=== PATIENT | male | born 1970 | race American Indian/Alaskan Native ===

== ENCOUNTER 2021-02-01 12:00 | Emergency (ER) | payer BC ==
[2021-02-01 13:16] LABS: Basophils # (Auto) 0.1 K/mm3 (0.0-0.1); Basophils % (Auto) 0.6 % (0.0-1.8); Eosinophils # (Auto) 0.1 K/mm3 (0.0-0.4); Eosinophils % (Auto) 0.8 % (0.0-4.3); Hematocrit 45.3 % (35.5-45.6); Hemoglobin 14.4 gm/dl (11.8-15.2); Lymphocytes # (Auto) 1.3 K/mm3 (1.2-5.4); Lymphocytes % (Auto) 13.8 % (13.4-35.0); Mean Corpuscular HGB Conc 32 % (32-34); Mean Corpuscular Volume 85 fl (84-94); Monocytes # (Auto) 0.6 K/mm3 (0.0-0.8); Monocytes % (Auto) 6.1 % (0.0-7.3); Platelet Count 309 K/mm3 (140-440); Red Blood Count 5.33 M/mm3 (3.65-5.03); Red Cell Distribution Width 15.1 % (13.2-15.2)
--- NOTE | 2021-02-01 13:36 | Emergency Department Report ---
ED General Adult HPI - General Chief complaint: High BP Stated complaint: B/P CHECK Time Seen by Provider: 02/01/21 12:11 Source: patient Mode of arrival: Ambulatory Limitations: No Limitations - History of Present Illness Initial comments: This is a 51-year-old male nontoxic, well nourished in appearance, no acute signs of distress presents to the ED with c/o of elevated blood pressure. 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 Patient stated currently is currently taking blood pressure medication consistently. Patient otherwise denies any symptoms or complaints. Patient denies any chest pain, shortness of breath, headache, stiff neck, numbness, tingling, headache, back pain, neck pain or urinary changes. Patient stated allergies to doxycycline and tetracyclines. -: This morning Severity scale (0 -10): 0 Improves with: none Worsens with: none Associated Symptoms: denies other symptoms. denies: confusion, chest pain, cough, diaphoresis, fever/chills, headaches, loss of appetite, malaise, nausea/vomiting, rash, seizure, shortness of breath, syncope, weakness Treatments Prior to Arrival: none - Related Data Previous Rx's Medication Instructions Recorded Last Taken Type Ondansetron [Zofran TAB] 4 mg PO Q8HR PRN #14 tablet 05/06/16 Unknown Rx traMADoL [Ultram 50 MG tab] 50 mg PO Q6HR PRN #12 tablet 05/06/16 Unknown Rx Allergies Allergy/AdvReac Type Severity Reaction Status Date / Time doxycycline Allergy Rash Verified 05/06/16 15:30 Tetracyclines Allergy Swelling Verified 05/06/16 15:30 ED Review of Systems ROS: Stated complaint: B/P CHECK Other details as noted in HPI Comment: All other systems reviewed and negative Constitutional: denies: chills, fever Eyes: denies: eye pain, eye discharge, vision change ENT: denies: ear pain, throat pain Respiratory: denies: cough, shortness of breath, wheezing Cardiovascular: denies: chest pain, palpitations Endocrine: no symptoms reported Gastrointestinal: denies: abdominal pain, nausea, diarrhea Genitourinary: denies: urgency, dysuria Musculoskeletal: denies: back pain, joint swelling, arthralgia Skin: denies: rash, lesions Neurological: denies: headache, weakness, paresthesias Psychiatric: denies: anxiety, depression Hematological/Lymphatic: denies: easy bleeding, easy bruising ED Past Medical Hx - Past Medical History Previous Medical History?: Yes Hx Hypertension: Yes (no meds) Hx Renal Disease: Yes (Kidney insufficiency) - Surgical History Past Surgical History?: Yes Additional Surgical History: Right hip surgery and 2 knee surgeries - Social History Smoking Status: Never Smoker Substance Use Type: Alcohol - Medications Home Medications: Home Medications Medication Instructions Recorded Confirmed Last Taken Type Ondansetron [Zofran TAB] 4 mg PO Q8HR PRN #14 tablet 05/06/16 Unknown Rx traMADoL [Ultram 50 MG tab] 50 mg PO Q6HR PRN #12 tablet 05/06/16 Unknown Rx ED Physical Exam - General Limitations: No Limitations General appearance: alert, in no apparent distress - Head Head exam: Present: atraumatic, normocephalic - Eye Eye exam: Present: normal appearance, PERRL, EOMI - ENT ENT exam: Present: normal exam, normal orophraynx - Neck Neck exam: Present: normal inspection, full ROM. Absent: lymphadenopathy - Respiratory Respiratory exam: Present: normal lung sounds bilaterally. Absent: respiratory distress, wheezes, rales, rhonchi, stridor, chest wall tenderness, accessory muscle use, decreased breath sounds, prolonged expiratory - Cardiovascular Cardiovascular Exam: Present: regular rate, normal rhythm, normal heart sounds. Absent: irregular rhythm, systolic murmur, diastolic murmur, rubs, gallop - GI/Abdominal GI/Abdominal exam: Present: soft, normal bowel sounds. Absent: distended, tenderness, guarding, rebound, rigid, diminished bowel sounds - Extremities Exam Extremities exam: Present: normal inspection, full ROM, normal capillary refill. Absent: tenderness - Back Exam Back exam: Present: normal inspection, full ROM. Absent: tenderness, CVA tenderness (R), CVA tenderness (L), muscle spasm, paraspinal tenderness, vertebral tenderness, rash noted - Neurological Exam Neurological exam: Present: alert, oriented X3, normal gait - Psychiatric Psychiatric exam: Present: normal affect, normal mood - Skin Skin exam: Present: warm, dry, intact, normal color. Absent: rash ED Course Vital Signs 02/01/21 02/01/21 12:34 16:03 Temperature 97.9 F Pulse Rate 103 H 88 Respiratory 16 16 Rate Blood Pressure 179/86 178/83 [Right] O2 Sat by Pulse 97 98 Oximetry - Reevaluation(s) Reevaluation #1: 02/01/21 13:33 Patient is speaking in full sentences with no signs of distress noted. ED Medical Decision Making - Lab Data Result diagrams: 02/01/21 12:46 02/01/21 12:46 Lab Results 02/01/21 02/01/21 02/01/21 Range/Units 12:46 12:46 14:43 WBC 9.4 (4.5-11.0) K/mm3 RBC 5.33 H (3.65-5.03) M/mm3 Hgb 14.4 (11.8-15.2) gm/dl Hct 45.3 (35.5-45.6) % MCV 85 (84-94) fl MCH 27 L (28-32) pg MCHC 32 (32-34) % RDW 15.1 (13.2-15.2) % Plt Count 309 (140-440) K/mm3 Lymph % (Auto) 13.8 (13.4-35.0) % Sunflower % (Auto) 6.1 (0.0-7.3) % Eos % (Auto) 0.8 (0.0-4.3) % Baso % (Auto) 0.6 (0.0-1.8) % Lymph # (Auto) 1.3 (1.2-5.4) K/mm3 Sunflower # (Auto) 0.6 (0.0-0.8) K/mm3 Eos # (Auto) 0.1 (0.0-0.4) K/mm3 Baso # (Auto) 0.1 (0.0-0.1) K/mm3 Seg Neutrophils % 78.7 H (40.0-70.0) % Seg Neutrophils # 7.4 (1.8-7.7) K/mm3 Sodium 136 L (137-145) mmol/L Potassium 3.3 L (3.6-5.0) mmol/L Chloride 98.1 (98-107) mmol/L Carbon Dioxide 21 L (22-30) mmol/L Anion Gap 20 mmol/L BUN 8 L (9-20) mg/dL Creatinine 1.1 (0.8-1.3) mg/dL Estimated GFR > 60 ml/min BUN/Creatinine Ratio 7 % Glucose 98 (75-100) mg/dL Calcium 9.2 (8.4-10.2) mg/dL Total Bilirubin 0.50 (0.1-1.2) mg/dL AST 21 (5-40) units/L ALT 24 (7-56) units/L Alkaline Phosphatase 90 (35-129) units/L Total Protein 8.0 (6.3-8.2) g/dL Albumin 4.5 (3.9-5) g/dL Albumin/Globulin Ratio 1.3 % Urine Color Colorless (Yellow) Urine Turbidity Clear (Clear) Urine pH 7.0 (5.0-7.0) Ur Specific [place] 1.001 L (1.003-1.030) Urine Protein <15 mg/dl (Negative) mg/dL Urine Glucose (UA) Neg (Negative) mg/dL Urine Ketones Neg (Negative) mg/dL Urine Blood Neg (Negative) Urine Nitrite Neg (Negative) Urine Bilirubin Neg (Negative) Urine Urobilinogen < 2.0 (<2.0) mg/dL Ur Leukocyte Esterase Neg (Negative) Urine WBC (Auto) < 1.0 (0.0-6.0) /HPF Urine RBC (Auto) < 1.0 (0.0-6.0) /HPF - EKG Data 02/01/21 14:51 Normal sinus rhythm at [address] or T wave abnormalities. Reviewed and signed by . - Medical Decision Making 51-year-old male that presents with hypertension. Patient is stable and was examined by me. Labs has been obtained and UA obtained. Patient is notified of the results with no questions noted by the patient. 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 According to ACEP: (1) in ED patients with asymptomatic markedly elevated blood pressure, routine screening for acute target organ injury (eg, serum creatinine, urinalysis, ECG) is not required. (1) In patients with asymptomatic markedly elevated blood pressure, routine ED medical intervention is not required. Educated patient on taking blood pressure readings 3 times a day and keep it in a diary and to presented to primary care doctor. Patient was instructed to follow-up with a primary care doctor in 3-5 days or if symptoms worsen and continue return to emergency room as soon as possible. At time of discharge, the patient does not seem toxic or ill in appearance. No acute signs of distr ess noted. Patient agrees to discharge treatment plan of care. No further questions noted by the patient. Critical care attestation.: If time is entered above; I have spent that time in minutes in the direct care of this critically ill patient, excluding procedure time. ED Disposition Clinical Impression: Hypokalemia HTN (hypertension) Qualifiers: Hypertension type: unspecified Qualified Code(s): I10 - Essential (primary) hypertension Disposition: 01 HOME / SELF CARE / HOMELESS Is pt being admited?: No Does the pt Need Aspirin: No Condition: Stable Instructions: Hypokalemia, Managing Your Hypertension, Hypertension, Adult, Hypertension (ED) Additional Instructions: Follow-up with a primary care doctor in 3-5 days or if symptoms worsen and continue return to emergency room as soon as possible. Referrals: YUMIKO SALDAÑA MD [Primary Care Provider] - 3-5 Days PRIMARY CAREMD [Referring] - 3-5 Days Forms: Work/School Release Form(ED) Time of Disposition: 16:01
[2021-02-01 13:42] LABS: Alanine Aminotransferase 24 units/L (7-56); Albumin 4.5 g/dL (3.9-5); BUN/Creatinine Ratio 7; Blood Urea Nitrogen 8 mg/dL (9-20); Calcium 9.2 mg/dL (8.4-10.2); Hemolysis Index 8
[2021-02-01] MEDS ORDERED: POTASSIUM CHLORIDE ER 20 MEQ TAB PO ONE (14:32)
[2021-02-01 15:48] LABS: Bilirubin,Urine NEG (Negative); Blood,Urine NEG (Negative); Color,Urine Colorless (Yellow); Protein,Urine <15 mg/dL mg/dL (Negative); Urobilinogen,Urine < 2.0 mg/dL (<2.0)
[2021-02-01 15:53] LABS: RBC,Urine < 1.0 /HPF (0.0-6.0); WBC,Urine < 1.0 /HPF (0.0-6.0)
[2021-02-01 16:04] VITALS: BP 178/83
--- NOTE | 2021-02-03 12:05 | Electrocardiograph Report ---
[facility] Test Date: 2021-02-01 Test Time: 14:38:30 Pat Name: WILBER VINCENT Department: Room: Gender: M Rn Acute Care: ARAM : 1970 Requested By: TITO SEAY Order Number: [id number] Reading MD: Matt Vera Measurements Intervals [place] Rate: 91 P: 59 [place]: 152 QRS: 28 QRSD: 95 T: 6 QT: 362 QTc: 447 Interpretive Statements Sinus rhythm No previous ECG available for comparison Electronically Signed On 02-03-2021 12:04:47 EST by Matt Vera
== END 2021-02-01 16:12 | disposition home or self-care (01) ==
LOC: ED 12:00
DX: I10 Essential (primary) hypertension (principal); E87.6 Hypokalemia; Z88.1 Allergy status to other antibiotic agents; F10.20 Alcohol dependence, uncomplicated
CPT/HCPCS: 36415; 80053; 81001; 85025; 93005; 99283

== ENCOUNTER 2021-08-25 16:18 | Emergency (ER) | payer BC ==
[2021-08-25] MEDS ORDERED: ASPIRIN 325 MG TAB PO ONE (16:27)
[2021-08-25 17:45] LABS: Basophils # (Auto) 0.2 K/mm3 (0.0-0.1); Basophils % (Auto) 2.3 % (0.0-1.8); Eosinophils # (Auto) 0.2 K/mm3 (0.0-0.4); Eosinophils % (Auto) 1.9 % (0.0-4.3); Hematocrit 44.6 % (35.5-45.6); Hemoglobin 14.7 gm/dl (11.8-15.2); Lymphocytes % (Auto) 12.1 % (13.4-35.0); Mean Corpuscular HGB Conc 33 % (32-34); Mean Corpuscular Volume 83 fl (84-94); Monocytes # (Auto) 0.7 K/mm3 (0.0-0.8); Monocytes % (Auto) 8.4 % (0.0-7.3); Platelet Count 284 K/mm3 (140-440); Red Blood Count 5.34 M/mm3 (3.65-5.03); Red Cell Distribution Width 14.5 % (13.2-15.2)
[2021-08-25 18:06] LABS: Alanine Aminotransferase 18 units/L (7-56); Albumin 4.5 g/dL (3.9-5); BUN/Creatinine Ratio 13; Blood Urea Nitrogen 14 mg/dL (9-20); Calcium 9.8 mg/dL (8.4-10.2); Hemolysis Index 7
[2021-08-26] MEDS ORDERED: ONDANSETRON 4 MG/2 ML INJ IV ONE (02:56)
--- NOTE | 2021-08-26 03:56 | XRay Report ---
CHEST 1 VIEW 08/26/2021 2:47 AM INDICATION / CLINICAL INFORMATION: Dyspnea. COMPARISON: None available. FINDINGS: SUPPORT DEVICES: None. HEART / MEDIASTINUM: No significant abnormality. LUNGS / PLEURA: No significant pulmonary or pleural abnormality. No pneumothorax. ADDITIONAL FINDINGS: No significant additional findings. IMPRESSION: 1. No acute findings. Signer Name: Ganga Mercado DO Signed: 08/26/2021 3:51 AM Workstation Name: [id number]
[2021-08-26] MEDS ORDERED: HYDROcodone/ACETAMINOPHEN 5-325 MG TAB PO ONE (03:57)
--- NOTE | 2021-08-26 03:59 | Emergency Department Report ---
ED Chest Pain HPI - General Chief Complaint: Chest Pain Stated Complaint: POSSIBLE STROKE Time Seen by Provider: 08/26/21 02:49 Source: patient Mode of arrival: Ambulatory Limitations: No Limitations - History of Present Illness Initial Comments: pt presents with left side arm pain -: Gradual, days(s) Pain Radiation: LUE Severity scale (0 -10): 0 Consistency: intermittent Improves With: nothing Worsens With: nothing - Related Data Previous Rx's Medication Instructions Recorded Last Taken Type Ondansetron [Zofran TAB] 4 mg PO Q8HR PRN #14 tablet 05/06/16 Unknown Rx traMADoL [Ultram 50 MG tab] 50 mg PO Q6HR PRN #12 tablet 05/06/16 Unknown Rx Allergies Allergy/AdvReac Type Severity Reaction Status Date / Time doxycycline Allergy Rash Verified 05/06/16 15:30 Tetracyclines Allergy Swelling Verified 05/06/16 15:30 Heart Score - HEART Score History: Slightly suspicious EKG: Normal Age: 45-65 Risk factors: 1-2 risk factors Troponin: < normal limit HEART Score: 2 - EKG Read Time Time EKG Completed: 16:32 EKG Read Time: 16:32 - Critical Actions Critical Actions: 0-3 pts:0.9-1.7%risk of adverse cardiac event.Candidate for discharge ED Review of Systems ROS: Stated complaint: POSSIBLE STROKE Other details as noted in HPI Constitutional: denies: chills, fever Eyes: denies: eye pain, eye discharge, vision change ENT: denies: ear pain, throat pain Respiratory: denies: cough, shortness of breath, wheezing Cardiovascular: denies: chest pain, palpitations Endocrine: no symptoms reported Gastrointestinal: denies: abdominal pain, nausea, diarrhea Genitourinary: denies: urgency, dysuria Musculoskeletal: denies: back pain, joint swelling, arthralgia Skin: denies: rash, lesions Neurological: denies: headache, weakness, paresthesias Psychiatric: denies: anxiety, depression Hematological/Lymphatic: denies: easy bleeding, easy bruising ED Past Medical Hx - Past Medical History Hx Hypertension: Yes (no meds) Hx Renal Disease: Yes (Kidney insufficiency) - Surgical History Additional Surgical History: Right hip surgery and 2 knee surgeries - Social History Smoking Status: Never Smoker Substance Use Type: Alcohol - Medications Home Medications: Home Medications Medication Instructions Recorded Confirmed Last Taken Type Ondansetron [Zofran TAB] 4 mg PO Q8HR PRN #14 tablet 05/06/16 Unknown Rx traMADoL [Ultram 50 MG tab] 50 mg PO Q6HR PRN #12 tablet 05/06/16 Unknown Rx ED Physical Exam - General Limitations: No Limitations General appearance: alert, in no apparent distress - Head Head exam: Present: atraumatic, normocephalic - Eye Eye exam: Present: normal appearance - ENT ENT exam: Present: mucous membranes moist - Neck Neck exam: Present: normal inspection - Respiratory Respiratory exam: Present: normal lung sounds bilaterally. Absent: respiratory distress - Cardiovascular Cardiovascular Exam: Present: regular rate, normal rhythm. Absent: systolic murmur, diastolic murmur, rubs, gallop - GI/Abdominal GI/Abdominal exam: Present: soft, normal bowel sounds - Rectal Rectal exam: Present: deferred - Extremities Exam Extremities exam: Present: normal inspection - Back Exam Back exam: Present: normal inspection - Neurological Exam Neurological exam: Present: alert, oriented X3 - Psychiatric Psychiatric exam: Present: normal affect, normal mood - Skin Skin exam: Present: warm, dry, intact, normal color. Absent: rash ED Course Vital Signs 08/25/21 08/26/21 16:25 02:38 Temperature 98.5 F Pulse Rate 72 51 L Respiratory 18 15 Rate Blood Pressure 145/87 Blood Pressure 140/82 [Right] O2 Sat by Pulse 98 100 Oximetry ED Medical Decision Making - Lab Data Result diagrams: 08/25/21 17:04 08/25/21 17:04 - EKG Data -: EKG Interpreted by Ma EKG shows normal: sinus rhythm Rate: normal - EKG Data Interpretation: no acute changes - Radiology Data Radiology results: report reviewed, image reviewed - Medical Decision Making work up negative trop negative , repeat trop negative refused pain meds Critical care attestation.: If time is entered above; I have spent that time in minutes in the direct care o f this critically ill patient, excluding procedure time. ED Disposition Clinical Impression: Chest pain Disposition: HOME / SELF CARE / HOMELESS Is pt being admited?: No Does the pt Need Aspirin: No Condition: Stable Instructions: Nonspecific Chest Pain, Adult Referrals: AKILAH ZAVALA MD [Primary Care Provider] - 3-5 Days MABLE BEJARANO MD [Staff Physician] - 3-5 Days
[2021-08-26] MEDS: MORPHINE 4 MG/1 ML INJ IV ONE ×2 (04:47→04:48)
[2021-08-26 04:54] VITALS: BP 121/67
--- NOTE | 2021-08-28 10:32 | Electrocardiograph Report ---
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
== END 2021-08-26 05:18 | disposition home or self-care (01) ==
LOC: ED 16:18
DX: R07.9 Chest pain, unspecified (principal); I10 Essential (primary) hypertension; F10.20 Alcohol dependence, uncomplicated; Z88.8 Allergy status to other drugs, medicaments and biological substances
CPT/HCPCS: 36415; 71045; 80053; 84484; 85025; 93005; 99284

== ENCOUNTER 2021-11-21 08:43 | Outpatient (CLI) | payer BC ==
[2021-11-21 09:59] LABS: Chol/HDL Ratio 3.38 %
--- NOTE | 2021-11-21 10:13 | XRay Report ---
LEFT SHOULDER 3 VIEWS 0943 INDICATION: Left shoulder pain COMPARISON: Portable chest x-ray 08/26/2021 FINDINGS: Moderate glenohumeral degenerative changes are noted. No fractures or dislocations are seen . Density in the humeral head probably is a bone island and appears to have been present in August. LEFT ELBOW 3 VIEWS 0940 INDICATION: LEFT ELBOW PAIN COMPARISON: None available. FINDINGS: No fractures or dislocations are seen. No joint effusion is noted. No significant arthritic changes. Signer Name: Luther Hill MD Signed: 11/21/2021 10:09 AM Workstation Name: [id number]
== END 2021-11-21 08:44 | disposition home or self-care (01) ==
LOC: XRAY 08:43
PROVIDERS: ATTEND Internal Medicine
DX: R73.9 Hyperglycemia, unspecified (principal); E78.5 Hyperlipidemia, unspecified; R53.83 Other fatigue; M19.012 Primary osteoarthritis, left shoulder; M25.522 Pain in left elbow
CPT/HCPCS: 36415; 80061; 83036; 84443